=== PATIENT | female | born 1955 ===

== ENCOUNTER 2018-03-11 11:14 | Emergency (ER) | payer OTHER ==
--- NOTE | 2018-03-11 11:33 | ED PDOC ---
Arrival/HPI - General Time Seen by Provider: 03/11/18 11:26 Historian: Patient - History of Present Illness Narrative History of Present Illness (Text): 03/11/18 11:33 A 62 year old female with no significant past medical history presents to the emergency department complaining of paraspinal back pain since last week. Patient reports pain is worse upon movement and she took a muscle relaxant to some relief. Patient reports that she swims a lot and thinks that this has triggered the pain. Reports that the pain is worse with movement. Patient denies any direct trauma, fever, chills, chest pain, shortness of breath, nausea , vomiting, back pain, neck pain, headache, dizziness, or any other complaints. 03/11/18 15:07 Time/Duration: Other (one week ) Symptom Onset: Gradual Symptom Course: Unchanged Context: Home Past Medical History - Provider Review Nursing Documentation Reviewed: Yes Family/Social History - Physician Review Nursing Documentation Reviewed: Yes Family/Social History: Unknown Family HX Allergies/Home Meds Allergies/Adverse Reactions: Allergies No Known Allergies Allergy (Verified 03/11/18 11:32) Home Medications: Home Meds Medication Instructions Recorded Confirmed Atorvastatin Calcium 80 mg PO DIN 03/11/18 03/11/18 Atorvastatin [Lipitor] 80 mg PO DAILY 03/11/18 03/11/18 Levothyroxine Sodium [Synthroid] 0.088 mg PO DAILY 03/11/18 03/11/18 Levothyroxine [Synthroid] 88 mcg PO DAILY 03/11/18 03/11/18 metFORMIN [glucOPHAGE] 500 mg PO BID 03/11/18 03/11/18 metFORMIN [glucOPHAGE] 500 mg PO DAILY 03/11/18 03/11/18 Review of Systems - Review of Systems Constitutional: absent: Fevers, Night Sweats Respiratory: absent: SOB, Cough, Sputum, Wheezing Cardiovascular: absent: Chest Pain, Palpitations, Edema, Calf Pain, Orthopnea, Syncope Gastrointestinal: absent: Abdominal Pain, Constipation, Diarrhea, Nausea, Vomiting Genitourinary Female: absent: Dysuria, Frequency, Hematuria, Vaginal Bleeding, Vaginal Discharge Musculoskeletal: Back Pain. absent: Neck Pain Neurological: absent: Headache, Dizziness Physical Exam Vital Signs Reviewed: Yes Vital Signs Temp Pulse Resp BP Pulse Ox 03/11/18 13:14 98 F 78 18 135/84 100 03/11/18 11:32 98 F 88 18 140/86 98 Temperature: Afebrile Blood Pressure: Normal Pulse: Regular Respiratory Rate: Normal Appearance: Positive for: Well-Appearing, Non-Toxic, Comfortable Pain Distress: None Mental Status: Positive for: Alert and Oriented X 3 - Systems Exam Head: Present: Atraumatic, Normocephalic Pupils: Present: PERRL Extroacular Muscles: Present: EOMI Conjunctiva: Present: Normal Mouth: Present: Moist Mucous Membranes Neck: Present: Normal Range of Motion Respiratory/Chest: Present: Clear to Auscultation, Good Air Exchange. No: Respiratory Distress, Accessory Muscle Use Cardiovascular: Present: Regular Rate and Rhythm, Normal S1, S2. No: Murmurs Abdomen: No: Tenderness, Distention, Peritoneal Signs Back: Present: Paraspinal Tenderness (right sided trapezius pin point tenderness ). No: Normal Inspection, CVA Tenderness, Midline Tenderness, Pain with Leg Raise, Decubitus Ulcer Upper Extremity: Present: Normal Inspection. No: Cyanosis Lower Extremity: Present: Normal Inspection. No: Edema Neurological: Present: GCS=15, CN II-XII Intact, Speech Normal Skin: Present: Warm, Dry, Normal Color. No: Rashes Psychiatric: Present: Alert, Oriented x 3, Normal Insight, Normal Concentration Medical Decision Making ED Course and Treatment: 03/11/18 11:40 Impression: A 62 year old female presents to the emergency department complaining of back pain. Plan: -- Valium -- Toradol -- Thoracic Spine XRay -- Chest X-ray -- Reassess and disposition Prior Visits: Notes and results from previous visits were reviewed. Progress Notes: 03/11/18 13:10 Thoracic Spine XRay reviewed by Dr. Garsia, shows no acute findings. Chest X Ray reviewed by Dr. Garsia, shows no active disease. 03/11/18 13:54 EKG shows sinus bradycardia at 55bpm with normal intervals and no ST changes 03/11/18 14:44 - Lab Interpretations Lab Results: 03/11/18 13:45 03/11/18 13:45 Lab Results 03/11/18 13:45: Sodium 143, Potassium 4.2, Chloride 107, Carbon Dioxide 27, Anion Gap 14, BUN 18, Creatinine 0.6 L, Est GFR ( Amer) > 60, Est GFR ( Non-Af Amer) > 60, Random Glucose 87, Calcium 9.6, Total Bilirubin 0.4, AST 56 H , ALT 78 H, Alkaline Phosphatase 91, Troponin I < 0.01, Total Protein 8.0, Albumin 4.4, Globulin 3.7, Albumin/Globulin Ratio 1.2 03/11/18 13:45: WBC 6.3, RBC 4.66, Hgb 13.5, Hct 38.8, MCV 83.3, MCH 29.0, MCHC 34.8, RDW 13.9, Plt Count 240, MPV 8.9, Gran % 55.6, Lymph % (Auto) 32.0, [place] % (Auto) 9.5 H, Eos % (Auto) 2.4, Baso % (Auto) 0.5, Gran # 3.51, Lymph # (Auto ) 2.0, [place] # (Auto) 0.6, Eos # (Auto) 0.2, Baso # (Auto) 0.03 - RAD Interpretation Radiology Orders: 03/11/18 11:33 THORACIC SPINE [DORSAL (THORACIC) SPINE] [RAD] Stat 03/11/18 12:36 CHEST PORTABLE [RAD] Stat - Medication Orders Current Medication Orders: Discontinued Medications Diazepam (Valium) 5 mg PO STAT STA PRN Reason: Protocol Stop: 03/11/18 11:33 Last Admin: 03/11/18 11:59 Dose: 5 mg Ketorolac Tromethamine (Toradol) 60 mg IM STAT STA Stop: 03/11/18 11:33 Last Admin: 03/11/18 11:59 Dose: 60 mg MAR Pain Assessment Document 03/11/18 11:59 LA (Rec: 03/11/18 12:00 LA [id number]) Pain Reassessment Is this a pain reassessment? No Sleep Is patient sleeping during reassessment? No Presence of Pain Presence of Pain Yes Pain Scale Used Pain Scale Used Numeric Location Left, Right or Bilateral Right Pain Location Body Site Back Description Description Intermittent Intensity of Pain at present 5 Pain Behavior Guarding IM Administration Charges Document 03/11/18 11:59 LA (Rec: 03/11/18 12:00 LA [id number]) Injection Site MAR Injection Site Right Gluteus Edson Charges for Administration # of IM Administrations 1 - Scribe Statement The provider has reviewed the documentation as recorded by the Sukhdev Sosa All medical record entries made by the Sukhdev were at my direction and personally dictated by me. I have reviewed the chart and agree that the record accurately reflects my personal performance of the history, physical exam, medical decision making, and the department course for this patient. I have also personally directed, reviewed, and agree with the discharge instructions and disposition. Disposition/Present on Arrival - Present on Arrival Any Indicators Present on Arrival: No - Disposition Have Diagnosis and Disposition been Completed?: Yes Diagnosis: Elevated LFTs, Muscle spasm Disposition: HOME/ ROUTINE Disposition Time: 14:44 Patient Plan: Discharge Patient Problems: Current Active Problems Problem Status Onset Elevated LFTs Acute Muscle spasm Acute Condition: GOOD Discharge Instructions (ExitCare): Muscle Spasms (DC), Liver Function Test Additional Instructions: Follow-up with PMD within 2 days. Return to ED if condition worsens. Take flexeril as needed for muscle spasm. Hot packs for muscle spasm. Prescriptions: Cyclobenzaprine [Cyclobenzaprine HCl] 10 mg PO TID PRN #20 tab PRN Reason: Muscle Spasm Referrals: FAMILY PROVIDER,NO [Primary Care Provider] - Follow up with primary
[2018-03-11 11:39] VITALS: TEMP 98; BMI 28.0
--- NOTE | 2018-03-11 13:04 | RAD ---
Date of service: 03/11/2018 HISTORY: back pain COMPARISON: No prior. FINDINGS: BONES: Alignment maintained. No fracture. Right-sided osteophytes DISC SPACES: Normal. SOFT TISSUES: Normal. OTHER FINDINGS: None. IMPRESSION: No acute findings
--- NOTE | 2018-03-11 13:15 | RAD ---
Date of service: 03/11/2018 HISTORY: chest pain COMPARISON: No prior. FINDINGS: LUNGS: No active pulmonary disease. PLEURA: No significant pleural effusion identified, no pneumothorax apparent. CARDIOVASCULAR: Normal. OSSEOUS STRUCTURES: No significant abnormalities. VISUALIZED UPPER ABDOMEN: Normal. OTHER FINDINGS: None. IMPRESSION: No active disease.
[2018-03-11 14:05] LABS: BASO # 0.03 K/mm3 (0.0-2.0); BASO % 0.5 % (0.0-3.0); EOS # 0.2 (0.0-0.7); EOS % 2.4 % (1.5-5.0); GRAN # 3.51 (1.4-6.5); GRAN % 55.6 % (50.0-68.0); HEMOGLOBIN 13.5 g/dL (12.0-16.0); MEAN CELL VOLUME 83.3 fl (80.0-105.0); MEAN CORPUSCULAR HGB CONC 34.8 g/dl (31.0-37.0); MEAN PLATELET VOLUME 8.9 fl (7.0-11.0); MONO # 0.6 (0.1-0.6); MONO % 9.5 % (1.0-6.0); RBC 4.66 10^6/uL (3.5-6.1); RED CELL DISTRIBUTION WIDTH 13.9 % (11.5-14.5); WHITE BLOOD COUNT 6.3 10^3/ul (4.5-11.0)
[2018-03-11 14:13] LABS: ALB/GLOB RATIO 1.2 (1.1-1.8); ALBUMIN 4.4 g/dL (3.0-4.8); ALT/SGPT 78 U/L (7-56); AST/SGOT 56 U/L (14-36); BLOOD UREA NITROGEN 18 mg/dL (7-21); CALCIUM 9.6 mg/dL (8.4-10.5); GFR AFRICAN-AMERICAN > 60; GFR NON-AFRICAN AMERICAN > 60
[2018-03-11 14:25] LABS: TROPONIN I < 0.01 ng/mL
[2018-03-11 15:05] VITALS: BP 134/82; PULSE 84; RESP 20; O2SAT 99
--- NOTE | 2018-03-11 17:26 | CARD ---
APPROVED REPORT Date of service: 03/11/2018 EKG Measurement Heart [id number] <Conclusion> Sinus bradycardia Otherwise normal ECG
== END 2018-03-11 15:05 | disposition home or self-care (01) ==
LOC: MERGE 11:14 → ED 11:14
DX: M62.838 Other muscle spasm (principal); R79.89 Other specified abnormal findings of blood chemistry
CPT/HCPCS: 71045; 72070; 80053; 84484; 85025; 93005; 96372; 99282; J1885